=== PATIENT | male | born 1995 | race American Indian/Alaskan Native ===

== ENCOUNTER 2018-08-28 11:17 | Emergency (ER) | payer SELFPAY ==
[2018-08-28] MEDS ORDERED: TYLENOL PO ONE (11:33)
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
[2018-08-28] MEDS ORDERED: TYLENOL ONE (11:36)
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
--- NOTE | 2018-08-28 12:15 | XRay Report ---
ROUTINE CHEST, TWO VIEWS: HISTORY: chest pain. The trachea, heart, mediastinal contour, lung dietz and bony thorax are unremarkable. IMPRESSION: Unremarkable chest x-ray.
--- NOTE | 2018-08-28 12:15 | XRay Report ---
RIGHT SHOULDER, 3 VIEWS: HISTORY: right shoulder pain. Normal bone mineralization. No acute osseous injury or joint pathology is detected. The soft tissues are unremarkable. IMPRESSION: Right shoulder within normal limits.
[2018-08-28] MEDS ORDERED: NORCO 5/325 PO ONE (12:24)
[2018-08-28] MEDS ORDERED: DELTASONE PO ONE (12:24)
[2018-08-28] MEDS ORDERED: FLEXERIL PO ONE (12:24)
[2018-08-28] MEDS ORDERED: TRIPLE ANTIBIOTIC TP ONE (12:25)
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
[2018-08-28 14:13] VITALS: BP 124/72
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
== END 2018-08-28 14:12 | disposition home or self-care (01) ==
LOC: ED 11:17
DX: S61.412A Laceration without foreign body of left hand, initial encounter (principal); S61.411A Laceration without foreign body of right hand, initial encounter; S20.219A Contusion of unspecified front wall of thorax, initial encounter; S80.12XA Contusion of left lower leg, initial encounter; S09.90XA Unspecified injury of head, initial encounter; V47.5XXA Car driver injured in collision with fixed or stationary object in traffic accident, initial encounter; Y93.89 Activity, other specified; Y92.488 Other paved roadways as the place of occurrence of the external cause; Y99.8 Other external cause status
CPT/HCPCS: 70450; 71046; 72125; 73030; 99284; J7512; A6250